=== PATIENT | female | born 1985 | race Two or more races ===

== ENCOUNTER 2019-02-20 18:34 | Emergency (ER) | payer OTHER ==
[~2019-02-20] VITALS: Ht 157.5 cm; Wt 77.1 kg
[2019-02-20] MEDS ORDERED: NKM (18:50)
[2019-02-20 18:53] VITALS: BP 138/89
--- NOTE | 2019-02-20 18:55 | NUR ---
ED Nurse Note: AMBULATED IN TO ER DUE TO PRESSURE IN LEFT EYE SINCE 02/16/19. NO REDNESS.
--- NOTE | 2019-02-20 19:27 | Emergency Room Report ---
History of Present Illness General Chief Complaint: Eye Problems Source: Patient Present Illness HPI 33-year-old female with no significant past medical history here complaining of 2 days of left eye pain and pressure. Patient reports that she accidentally had the corner of a piece of paper touching her left cornea eyes blurry vision, headache, dizziness, fever and chills. Planes of minimal yellow discharge from the corner of her left eye. Denies bloody discharge pruritis. Patient is rating the pain 3 out of 10 without radiation and has been taking ibuprofen with minimal relief. Denies chest pain, S OB, Pap palpitation, and all other associated symptoms Allergies: Coded Allergies: No Known Allergies (Unverified , 02/20/19) Patient History Past Medical History: see triage record Past Surgical History: unable to obtain Pertinent Family History: none Last Menstrual Period: TEN YEARS AGO Now: No Immunizations: UTD Reviewed Nursing Documentation: PMH: Agreed; PSxH: Agreed Nursing Documentation-PMH Past Medical History: No Stated History Review of Systems All Other Systems: negative except mentioned in HPI Physical Exam Vital Signs Date Time Temp Pulse Resp B/P (MAP) Pulse Ox O2 Delivery O2 Flow Rate FiO2 02/20/19 18:47 98.8 99 16 138/89 (105) 99 Room Air Sp02 EP Interpretation: reviewed, normal General Appearance: normal inspection, well appearing, no apparent distress Head: normocephalic, atraumatic Eyes: left eye other - corneal abrasion; bilateral eye PERRL ENT: normal ENT inspection, hearing grossly normal, normal pharynx, no angioedema, normal voice Neck: normal inspection, full range of motion, supple Respiratory: normal inspection, chest non-tender, lungs clear, normal breath sounds Cardiovascular #1: normal inspection, regular rate, rhythm, no murmur Gastrointestinal: normal inspection, normal bowel sounds, soft Musculoskeletal: normal inspection Neurologic: normal inspection, alert, oriented x3 Psychiatric: normal inspection, judgement/insight normal Medical Decision Making PA Attestation all treatment plans were reviewed and discussed with my supervising physician Dr. Kelly Diagnostic Impression: Primary Impression: Corneal abrasion ER Course 33-year-old female with no significant past medical history here complaining of 2 days of left eye pain and pressure. Patient reports that she accidentally had the corner of a piece of paper touching her left cornea eyes blurry vision, headache, dizziness, fever and chills. Planes of minimal yellow discharge from the corner of her left eye. Denies bloody discharge pruritis. Patient is rating the pain 3 out of 10 without radiation and has been taking ibuprofen with minimal relief. Denies chest pain, S OB, Pap palpitation, and all other associated symptoms Ddx considered but are not limited to corneal ulcer, corneal abrasion, conjunctivitis, foreign body in eye Vital signs: are WNL, pt. is afebrile H&PE are most consistent with corneal abrasion ORDERS: Ofloxacin eyedrops ED INTERVENTIONS: None required at this time. DISCHARGE: At this time pt. is stable for d/c to home. Will provide printed patient care instructions, and any necessary prescriptions. Care plan and follow up instructions have been discussed with the patient prior to discharge. follow up with a primary care provider for referral to skip load driver Last Vital Signs Date Time Temp Pulse Resp B/P (MAP) Pulse Ox O2 Delivery O2 Flow Rate FiO2 02/20/19 18:53 98.8 99 16 138/89 99 Room Air Disposition: HOME, SELF-CARE Condition: Stable Scripts Ofloxacin (OFLOXACIN) 5 Ml Drops 2 DROP OPHTHALM QID, #10 ML Prov: Natasha Sawyer 02/20/19 Patient Instructions: Corneal Ulcer Additional Instructions: follow up with Primary doctor for follow-up and referral to skip load driver for protective sunglasses Natasha Sawyer Feb 20, 2019 19:27
[2019-02-20] MEDS ORDERED: OFLOXACIN5 ML OPHTHALM (19:28)
--- NOTE | 2019-02-20 19:36 | NUR ---
ED Nurse Note: pt cleared to be d/c per ERMD, pt discharge and aftercare instruction provided w/ prescription, pt advised to follow up with eye doctor or return ton ed if changes in condition, pt verbalized understanding and agrees with plan, left w/ all belongings, vss.
[2019-02-20 19:37] VITALS: BP 128/76
== END 2019-02-20 19:37 | disposition home or self-care (01) ==
LOC: EMR 19:30
DX: S05.02XA Injury of conjunctiva and corneal abrasion without foreign body, left eye, initial encounter (principal); S05.01XA Injury of conjunctiva and corneal abrasion without foreign body, right eye, initial encounter; X58.XXXA Exposure to other specified factors, initial encounter; Y92.9 Unspecified place or not applicable
CPT/HCPCS: 99282